=== PATIENT | female | born 1985 | race Caucasian/White ===

== ENCOUNTER 2017-11-11 07:24 | Day surgery (SDC) | payer OTHER ==
[~2017-11-11] VITALS: Ht 160 cm; Wt 59.8 kg
[~2017-11-11 07:24] MED LIST: BACITRACIN 50,000 UNIT ONE; BUPIVACAINE/PF-EPI 0.5% 1:200K ONE; LIDOCAINE 1%-EPI 1:100K, 30ML ONE; THROMBIN 5,000 UNIT VIAL TP ONE; VANCOMYCIN 1,000 MG ONE
[2017-11-11] MEDS ORDERED: LACTATED RINGERS 1,000 ML IV SCH (07:45)
[2017-11-11 08:00] LABS: HCG UR SG 1.014 (1.003-1.030)
[2017-11-11] MEDS ORDERED: PLEASE ENTER HEIGHT AND WEIGHT MC SCH (08:00)
[2017-11-11] MEDS ORDERED: LIDOCAINE-MPF 1%, 2ML INFIL ONE (08:00)
[2017-11-11 08:12] VITALS: BP 111/76
[2017-11-11] MEDS ORDERED: MIDAZOLAM 1 MG/ML, 2ML ONE (08:18)
[2017-11-11] MEDS ORDERED: METOCLOPRAMIDE 10MG TABLET PO ONE (08:30)
[2017-11-11] MEDS ORDERED: DIAZEPAM 5 MG TABLET PO ONE (08:30)
[2017-11-11] MEDS ORDERED: ACETAMINOPHEN 500 MG TABLET PO ONE (08:30)
[2017-11-11] MEDS ORDERED: GABAPENTIN 300 MG CAPSULE PO ONE (08:30)
[2017-11-11] MEDS ORDERED: FAMOTIDINE 20 MG TABLET PO ONE (08:30)
[2017-11-11] MEDS ORDERED: KETAMINE 10 MG/ML, 20ML ONE (09:10)
[2017-11-11] MEDS ORDERED: GENTAMICIN 80 MG/2 ML ONE (09:30)
[2017-11-11] MEDS ORDERED: EPHEDRINE 50 MG/ML, 1ML ONE (09:34)
[2017-11-11] MEDS ORDERED: DEXAMETHASONE 4 MG/ML, 1ML ONE (09:34)
[2017-11-11] MEDS ORDERED: CEFAZOLIN 1,000 MG ONE (09:34)
[2017-11-11] MEDS ORDERED: GLYCOPYRROLATE 0.2MG/1ML, 5ML ONE (09:34)
[2017-11-11] MEDS ORDERED: SUCCINYLCHOLINE 20 MG/ML, 10ML ONE (09:34)
[2017-11-11] MEDS ORDERED: NEOSTIGMINE 1 MG/ML, 10ML ONE (09:34)
[2017-11-11] MEDS ORDERED: ROCURONIUM 10 MG/ML,10ML ONE (09:34)
[2017-11-11] MEDS ORDERED: PROPOFOL 10 MG/ML, 20ML ONE (09:34)
[2017-11-11] MEDS ORDERED: FENTANYL PF 100 MCG/2ML IV PRN (11:30)
[2017-11-11] MEDS ORDERED: OXYcodone 5 MG/5 ML ORAL.SOL UDC PO PRN (11:30)
[2017-11-11] MEDS ORDERED: ONDANSETRON ODT 8 MG PO PRN (11:30)
[2017-11-11] MEDS ORDERED: ALBUTEROL SULFATE 2.5 MG/3 ML NPPB PRN (11:30)
[2017-11-11] MEDS ORDERED: DIAZEPAM 5 MG/ML, 2ML IVPush PRN (11:30)
[2017-11-11] MEDS ORDERED: PROMETHAZINE 25 MG/ML, 1ML IV PRN (11:30)
[2017-11-11] MEDS ORDERED: KETOROLAC 30 MG/1 ML IV PRN (11:30)
[2017-11-11] MEDS ORDERED: HYDROmorphone 1 MG/ML, 1ML IV PRN (11:30)
[2017-11-11] MEDS ORDERED: FENTANYL PF 250 MCG/5ML ONE (11:38)
[2017-11-11] MEDS ORDERED: OXYcodone 5 MG/5 ML ORAL.SOL UDC ONE (11:42)
[2017-11-11] MEDS ORDERED: FENTANYL PF 100 MCG/2ML ONE (11:42)
[2017-11-11] MEDS ORDERED: ONDANSETRON 2MG/ML, 2ML ONE (12:08)
[2017-11-11] MEDS ORDERED: ONDANSETRON 2MG/ML, 2ML IVPush ONE (12:30)
== END 2017-11-11 15:30 | disposition home or self-care (01) ==
LOC: OUT 07:24
PROVIDERS: ATTEND Orthopaedic Surgery Orthopaedic Surgery of the Spine
DX: M51.17 Intervertebral disc disorders with radiculopathy, lumbosacral region (principal); Z88.8 Allergy status to other drugs, medicaments and biological substances
CPT/HCPCS: 63030; 72100; 72120; 81025; J0330; J0690; J1100; J1580; J2250; J2405; J2704; J2710; J3010; J3490; J7120; J3370